=== PATIENT | male | born 1965 | race Caucasian/White ===

== ENCOUNTER → 2017-05-12 09:07 | Outpatient (CLI) | payer OTHER, SELFPAY ==
[2017-05-12 10:44] LABS: Hemoglobin A1c 7.8 % (4.2-6.3)
[2017-05-12 11:00] LABS: ALB/GLOB Ratio 1.1 RATIO (0.9-2.4); AST(SGOT) 20 U/L (15-37); Alanine Aminotransfer ALT/SGPT 68 U/L (16-61); Alkaline Phosphatase 91 U/L (45-117); BUN 14 mg/dL (7-18); BUN/Creat Ratio 14.5 RATIO (10-20); Calcium,Total 8.7 mg/dL (8.5-10.1); Cholesterol 191 mg/dL (200); Creatinine, Serum 0.96 mg/dL (0.70-1.30); EST Glomerular Filtration Rate 87 mL/min (>60); Est Glom Filt Rate - Afr Amer 105 mL/min (>60); Globulin 3.7 g/dL (2.2-4.2); Glucose 200 mg/dL (74-106); Protein, Total 7.7 g/dL (6.4-8.2); Sodium Level 137 mmol/L (136-145); Triglycerides 250 mg/dL
[2017-05-12 11:01] LABS: Anion Gap 9 (5-15); Chloride 102 mmol/L (98-107); High Density Lipoprotein 37 mg/dL; Potassium 3.8 mmol/L (3.5-5.1); T4 Free Direct 0.75 ng/dL (0.76-1.46); Thyroid Stim Hormone (TSH) 8.86 uIU/mL (0.358-3.74); Very Low Density Lipoprotein 50 mg/dL (5-40)
== END ==
PROVIDERS: Family Provider Internal Medicine; PCP Internal Medicine; Visit Provider Internal Medicine
DX: E78.5 Hyperlipidemia, unspecified (principal); E11.9 Type 2 diabetes mellitus without complications; E03.9 Hypothyroidism, unspecified
CPT/HCPCS: 36415; 80053; 80061; 83036; 84439; 84443

== ENCOUNTER → 2022-07-06 | Outpatient (CLI) | payer BC, OTHER, SELFPAY ==
--- NOTE | 2022-07-06 14:52 | NEURO_ITS ---
NCS and/or EMG Patient Report Ordering Doctor: Ever Patterson DATE OF SERVICE: 07/06/22 Jerome presents for electrodiagnostic testing of the upper limbs. He reports numbness and tingling in both hands. He reports persistent neck pain. Electrodiagnostic findings: Left median motor nerve demonstrates prolonged di stal latency with normal amplitude and reduced conduction velocity Right median motor nerve demonstrates prolonged latency with normal amplitude and reduced conduction velocity. Normal ulnar motor response noted bilaterally. Prolonged median F wave bilaterally. Prolonged median sensory latency at the wrist bilaterally. Prolonged left median palmar latency. Normal ulnar and radial sensory responses. On needle EMG, all muscles tested in the upper limbs showed no evidence of denervation with normal motor unit action potentials. No denervation noted in the cervical paraspinals. Electrodiagnostic impression: This is an abnormal study in the upper limbs. 1. Electrodiagnostic findings suggestive of bilateral median mononeuropathy. This is consistent with a moderate bilateral carpal tunnel syndrome. 2. No electrodiagnostic evidence noted for ulnar neuropathy, including cubital tunnel syndrome. 3. No electrodiagnostic evidence is noted for cervical radiculopathy.
== END | disposition home or self-care (01) ==
LOC: PSN 13:27
PROVIDERS: PCP Clinical Nurse Specialist; Referring Provider Orthopaedic Surgery; Visit Provider Orthopaedic Surgery
DX: R20.0 Anesthesia of skin (principal)
CPT/HCPCS: 95886; 95913